=== PATIENT | female | born 1985 ===

== ENCOUNTER 2019-05-06 23:50 | Inpatient (IN) | payer SELFPAY ==
[~2019-05-06] VITALS: Ht 172.7 cm; Wt 88.6 kg
[~2019-05-06 23:50] MED LIST: IBUP800 PO; OXYACE5T PO; Verotin-Gr Cap1 EACH PO
[2019-05-07 00:44] LABS: BASOPHILS ABSOLUTE AUTO 0.02 K/mm3 (0.00-0.23); BASOPHILS PERCENT AUTO 0 % (0-2); EOSINOPHILS ABSOLUTE AUTO 0.04 K/mm3 (0.00-0.68); EOSINOPHILS PERCENT AUTO 1 % (0-6); Hematocrit 36.9 % (33.0-51.0); Hemoglobin 12.2 g/dL (11.5-16.0); IMMATURE GRAN ABSOLUTE AUTO 0.04 K/mm3 (0.00-0.10); IMMATURE GRAN PERCENT AUTO 1 % (0-1); LYMPHOCYTES ABSOLUTE AUTO 1.88 K/mm3 (0.84-5.20); LYMPHOCYTES PERCENT AUTO 23 % (21-46); MONOCYTES ABSOLUTE AUTO 0.81 K/mm3 (0.16-1.47); MONOCYTES PERCENT AUTO 10 % (4-13); Mean Corpuscular HGB 29.2 pg (26.0-34.0); Mean Corpuscular HGB Conc 33.1 g/dL (31.5-36.5); Mean Corpuscular Volume 88 fL (80-100); Mean Platelet Volume 11.2 fL (9.1-12.4); NEUTROPHILS ABSOLUTE AUTO 5.57 K/mm3 (1.96-9.15); NEUTROPHILS PERCENT AUTO 67 % (41-73); Platelet Count 204 K/mm3 (150-400); RDW Coefficient Variation 14.2 % (11.7-14.2); RDW Standard Deviation 45.5 fL (35.1-46.3); Red Blood Cell Count 4.18 M/mm3 (3.80-5.20); White Blood Cell Count 8.36 K/mm3 (4.00-11.30)
--- NOTE | 2019-05-07 12:05 | NUR ---
NO COMPLAINTS.VSS. CARING FOR SELF AND BABY INDEPENDANTLY.
--- NOTE | 2019-05-07 18:26 | NUR ---
ASSIST I VISTED PT THREE TIME TODAY BABY VERY SLEEPY AND NOT VERY INTRESED IN FEEDING. ON SECOND VISIT THIS AFTER NOON DEMOMNSTRATED SUPP AT BREAST IF ORDERD AND DEMONSTRATED SPOON FEEDING WTIH FORMULA. FATHER EASILY SPOON FED BABY APPROX 2 CC . DISCUSSED POSSIBILITY OF SUPP BABY IS . AT THIS VISIT NOW MOM WAS TEARFUL BABY WAS TAKEN TO NURSEY FOR COLOR CHANGES AND BABY VERY LOW CBG WAS NOTED. MOM ENCOURAGED TO HAVE FAMILY BRING IN HER BREAST PUMP SO SHE COULD START PUMPING. OTHER CHILD WITH TOUNGE AND LIP TIE.
--- NOTE | 2019-05-08 03:56 | NUR ---
MOTHER IS BEING UPDATED BY DR. COLON ABOUT CHANGE IN BABY'S CONDITION.
[2019-05-08 06:53] LABS: BASOPHILS ABSOLUTE AUTO 0.05 K/mm3 (0.00-0.23); BASOPHILS PERCENT AUTO 0 % (0-2); EOSINOPHILS ABSOLUTE AUTO 0.09 K/mm3 (0.00-0.68); EOSINOPHILS PERCENT AUTO 1 % (0-6); Hematocrit 36.4 % (33.0-51.0); Hemoglobin 11.7 g/dL (11.5-16.0); IMMATURE GRAN ABSOLUTE AUTO 0.08 K/mm3 (0.00-0.10); IMMATURE GRAN PERCENT AUTO 1 % (0-1); LYMPHOCYTES ABSOLUTE AUTO 2.37 K/mm3 (0.84-5.20); LYMPHOCYTES PERCENT AUTO 20 % (21-46); MONOCYTES ABSOLUTE AUTO 0.93 K/mm3 (0.16-1.47); MONOCYTES PERCENT AUTO 8 % (4-13); Mean Corpuscular HGB 28.7 pg (26.0-34.0); Mean Corpuscular HGB Conc 32.1 g/dL (31.5-36.5); Mean Corpuscular Volume 89 fL (80-100); Mean Platelet Volume 11.5 fL (9.1-12.4); NEUTROPHILS ABSOLUTE AUTO 8.25 K/mm3 (1.96-9.15); NEUTROPHILS PERCENT AUTO 70 % (41-73); Platelet Count 220 K/mm3 (150-400); RDW Coefficient Variation 14.6 % (11.7-14.2); RDW Standard Deviation 46.9 fL (35.1-46.3); Red Blood Cell Count 4.08 M/mm3 (3.80-5.20); White Blood Cell Count 11.77 K/mm3 (4.00-11.30)
--- NOTE | 2019-05-08 09:22 | NUR ---
ambulating in halls to nursery to see nb. denies pain. no complaints. linens changed.
--- NOTE | 2019-05-08 12:26 | NUR ---
PT TEARFUL R/T UPDATE THAT NB WILL BE TRANSFERRED TO [facility]. PT PACKING UP STUFF. PLAN D/C KORI. NO COMPLAINTS. [facility] SELF CARE WELL. GOOD SUPPORT FROM .
--- NOTE | 2019-05-08 12:31 | NUR ---
D/C TO BOARDER STATUS.
== END 2019-05-08 12:32 | disposition home or self-care (01) | DRG 807 ==
LOC: OBS 23:50 → BC 23:51 → OBS 05-07 00:17 → BC 05-07 00:19
PROVIDERS: ADMIT Nurse Practitioner Obstetrics & Gynecology
PROC: 10E0XZZ Delivery of Products of Conception, External Approach (ICD-10-PCS; principal; 2019-05-07)
DX: O80 Encounter for full-term uncomplicated delivery (principal); Z37.0 Single live birth; Z3A.36 36 weeks gestation of pregnancy
CPT/HCPCS: 36415; 85025; 86850; 86900; 86901; J0290; J2210; J2590; J7120